=== PATIENT | male | born 1975 | race Caucasian/White ===

== ENCOUNTER → 2022-11-18 | Outpatient (CLI) | payer BC | END | disposition home or self-care (01) | LOC: ORTHO 13:18 | PROVIDERS: ATTEND Orthopaedic Surgery | DX: M25.751 Osteophyte, right hip (principal) ==

== ENCOUNTER → 2022-12-01 | Day surgery (SDC) | payer BC ==
[~2022-12-01] VITALS: Ht 175.2 cm; Wt 70.3 kg
[2022-12-01] VITALS (7 sets, daily range): BP systolic 97–134; BP diastolic 50–78
[~2022-12-01] MED LIST: OMEPRAZOLE40 MG PO; ZANTAC-360 (FAM20 MG PO
== END | disposition home or self-care (01) ==
LOC: SDC 11-28 12:30
PROVIDERS: ATTEND Orthopaedic Surgery
DX: G56.03 Carpal tunnel syndrome, bilateral upper limbs (principal); M25.552 Pain in left hip; M25.551 Pain in right hip; M87.052 Idiopathic aseptic necrosis of left femur; F32.A Depression, unspecified; F41.9 Anxiety disorder, unspecified; K21.9 Gastro-esophageal reflux disease without esophagitis; K50.90 Crohn's disease, unspecified, without complications; F17.210 Nicotine dependence, cigarettes, uncomplicated; Z79.899 Other long term (current) drug therapy